=== PATIENT | female | born 1935 | race Two or more races ===

== ENCOUNTER 2017-11-02 09:44 | Outpatient (CLI) | payer OTHER | END 2017-11-02 09:54 | disposition home or self-care (01) | LOC: RAD 09:44 | DX: Z12.31 Encounter for screening mammogram for malignant neoplasm of breast (principal); Z87.898 Personal history of other specified conditions; C50.911 Malignant neoplasm of unspecified site of right female breast ==

== ENCOUNTER → 2018-04-25 | Outpatient (CLI) | payer OTHER | END | disposition home or self-care (01) | LOC: NUCLEAR 13:00 | DX: M81.0 Age-related osteoporosis without current pathological fracture (principal) ==

== ENCOUNTER 2018-09-05 09:42 | Emergency (ER) | payer OTHER ==
[~2018-09-05] VITALS: Ht 160 cm; Wt 59.0 kg
[2018-09-05] MEDS ORDERED: FOSAMAX70 MG (09:50)
[2018-09-05] MEDS ORDERED: LIPITOR20 MG (09:51)
[2018-09-05] MEDS ORDERED: ALTACE10 MG (09:51)
[2018-09-05] MEDS ORDERED: PLAVIX75 MG (09:51)
[2018-09-05] MEDS ORDERED: PROTONIX40 M1 (09:51)
[2018-09-05] MEDS ORDERED: CITALOPRAM HBR10 MG (09:52)
[2018-09-05] MEDS ORDERED: ANASTROZOLE1 MG (09:52)
[2018-09-05] MEDS ORDERED: XANAX XR0.5 MG (09:53)
== END 2018-09-05 12:13 | disposition home or self-care (01) ==
LOC: ER 09:42
DX: S80.01XA Contusion of right knee, initial encounter (principal); W18.09XA Striking against other object with subsequent fall, initial encounter; Y93.89 Activity, other specified; Y92.59 Other trade areas as the place of occurrence of the external cause; Y99.8 Other external cause status

== ENCOUNTER → 2019-04-23 | Outpatient (CLI) | payer OTHER ==
[~2019-04-23] MED LIST: ALTACE10 MG; ANASTROZOLE1 MG; CITALOPRAM HBR10 MG; FOSAMAX70 MG; LIPITOR20 MG; PLAVIX75 MG; PROTONIX40 M1; XANAX XR0.5 MG
== END | disposition home or self-care (01) ==
LOC: RAD 15:13
DX: S22.31XA Fracture of one rib, right side, initial encounter for closed fracture (principal)

== ENCOUNTER 2020-05-20 10:11 | Outpatient (CLI) | payer OTHER | END 2020-05-20 10:18 | disposition home or self-care (01) | LOC: RAD 10:11 | PROVIDERS: ATTEND Surgery Surgical Oncology | DX: I10 Essential (primary) hypertension (principal) ==

== ENCOUNTER 2020-05-29 10:39 | Outpatient (CLI) | payer OTHER | END 2020-05-29 10:53 | disposition home or self-care (01) | LOC: MAMO-SONO 10:39 | DX: C50.811 Malignant neoplasm of overlapping sites of right female breast (principal) ==

== ENCOUNTER 2021-07-29 09:55 | Outpatient (CLI) | payer OTHER | END 2021-07-29 10:06 | disposition home or self-care (01) | LOC: MAMO-SONO 09:55 | PROVIDERS: ATTEND Surgery Surgical Oncology | DX: C50.911 Malignant neoplasm of unspecified site of right female breast (principal) ==

== ENCOUNTER → 2021-07-29 12:34 | Outpatient (CLI) | payer OTHER | END | disposition home or self-care (01) | LOC: NUCLEAR 12:34 | PROVIDERS: ATTEND Family Medicine | DX: M81.0 Age-related osteoporosis without current pathological fracture (principal) ==

== ENCOUNTER 2022-05-26 00:53 | Emergency (ER) | payer OTHER ==
[~2022-05-26] VITALS: Ht 160 cm; Wt 55.3 kg
[2022-05-26] MEDS ORDERED: DOLOGESIC 500-1 EACH PO (04:39)
== END 2022-05-26 05:54 ==
LOC: ER 00:53
DX: S09.8XXA Other specified injuries of head, initial encounter (principal); S69.82XA Other specified injuries of left wrist, hand and finger(s), initial encounter; S39.82XA Other specified injuries of lower back, initial encounter; I10 Essential (primary) hypertension; W06.XXXA Fall from bed, initial encounter; Y93.9 Activity, unspecified; Y92.012 Bathroom of single-family (private) house as the place of occurrence of the external cause; Z88.6 Allergy status to analgesic agent; S52.592A Other fractures of lower end of left radius, initial encounter for closed fracture

== ENCOUNTER 2022-09-06 11:12 | Outpatient (CLI) | payer OTHER ==
[~2022-09-06 11:12] MED LIST changes: +DOLOGESIC 500-1 EACH PO
== END 2022-09-06 11:17 | disposition home or self-care (01) ==
LOC: MAMO-SONO 11:12
PROVIDERS: ATTEND Surgery Surgical Oncology
DX: D05.11 Intraductal carcinoma in situ of right breast (principal); Z85.3 Personal history of malignant neoplasm of breast

== ENCOUNTER 2022-09-30 08:39 | Outpatient (CLI) | payer OTHER | END 2022-09-30 08:41 | disposition home or self-care (01) | LOC: NUCLEAR 08:39 | PROVIDERS: ATTEND Family Medicine | DX: I87.2 Venous insufficiency (chronic) (peripheral) (principal) ==

== ENCOUNTER 2023-11-30 15:14 | Outpatient (CLI) | payer OTHER | END 2023-11-30 15:23 | disposition home or self-care (01) | LOC: TOM 15:14 | DX: R10.84 Generalized abdominal pain (principal) ==